=== PATIENT | male | born 1960 | race Caucasian/White ===

== ENCOUNTER → 2018-08-25 | Outpatient (CLI) | payer OTHER ==
[~2018-08-25] MED LIST: ADVIL100 M2 PO; DEPO-TESTO100 MG/1 M IM; ENOXAPARIN40 MG/0.1 SUBQ; MENEST PO; NORCO 5-325 TA1 EACH PO; PERCOCET 5-3251 EACH PO; PROMETRIUM100 MG PO; PROSTATE HEALT1 EACH PO; STRESS FORMULA PO; VITAMIN B-12100 MC1 PO; VITAMIN D35000 UNI1 PO
== END ==
LOC: RAD 16:50
DX: T17.900A Unspecified foreign body in respiratory tract, part unspecified causing asphyxiation, initial encounter (principal); X58.XXXA Exposure to other specified factors, initial encounter; Y93.89 Activity, other specified; Y92.89 Other specified places as the place of occurrence of the external cause; Y99.8 Other external cause status

== ENCOUNTER → 2018-09-04 | Outpatient (CLI) | payer OTHER | LOC: CAT 12:25 | DX: K57.30 Diverticulosis of large intestine without perforation or abscess without bleeding (principal); K59.00 Constipation, unspecified ==

== ENCOUNTER → 2018-09-13 | Outpatient (CLI) | payer OTHER ==
[~2018-09-13] VITALS: Ht 188 cm; Wt 113.4 kg
[~2018-09-13] MED LIST changes: +ALLOPURINOL 30300 M1 PO; +CRESTOR10 MG PO; +DHEA25 MG PO; +IBUPROFEN 400400 M2 PO; +LISINOPRIL10 MG PO
--- NOTE | ~2018-09-13 | P ---
[facility] [place] [address] PROCEDURE REPORT Name: KISHAN HERNANDEZ Room #: [id number] Admission: 09/13/18 Attend Phys: Omkar Peralta Discharge: Date of : 62 Report #: [id number] THIS REPORT FOR: //name// CC: Omkar Waterman MD DATE OF SERVICE: 09/13/2018 PROCEDURE PERFORMED: Colonoscopy. HISTORY OF PRESENT ILLNESS: The patient is a 58-year-old male who has a history of colon polyps 7 years ago, was undergoing a dental procedure in which a dental implant was accidentally swallowed. This was followed by several series of x-rays that showed the dental implant in the right lower quadrant. Eventually, he had a CT scan on 09/04/2018 also showing foreign body had passed through the small bowel into the colon. At that time, it was lying along the posterior colon wall in the right lower quadrant. He then had a large bowel movement recently and a followup x-ray was reportedly negative. He denies any symptoms at this time. No family history of colon cancer. DESCRIPTION OF PROCEDURE: The risks and benefits of the procedure were explained to the patient, those risks including but not limited to bleeding, perforation, the risk of sedation. He understood these risks and gave informed consent. Sedation was given using propofol per Anesthesia. Next, a digital rectal exam was initially performed, which was normal. Next, using a standard Olympus colonoscope, the scope was placed in the patient's anus and advanced under direct vision to the cecum. The overall prep was excellent. The cecum and ileocecal valve were normal in appearance. Ascending, transverse and descending colon were all normal. Multiple diverticula were noted in the sigmoid colon, no evidence of inflammation, otherwise normal. The rectal mucosa was normal. On retroflexion, small internal hemorrhoids were noted, otherwise anal canal was negative. There was no evidence of foreign object or dental implant on colonoscopy today. The scope was then withdrawn and the procedure terminated. The patient tolerated the procedure well. IMPRESSION: 1. Sigmoid diverticulosis. 2. Small internal hemorrhoids. 3. Otherwise, normal colonoscopy. RECOMMENDATIONS: 1. High-fiber diet. 2. Repeat colonoscopy in [address] [address] PROCEDURE REPORT Name: KAYLENILDAKISHAN SOLANO Room #: REG [facility] Cook#: [id number] Admission: 09/13/18 Attend Phys: Omkar Peralta Discharge: Date of : 62 Report #: [id number] Thank you for allowing me to participate in his care. <ELECTRONICALLY SIGNED> By: Omkar Santos MD 09/15/18 [id number] Omkar Santos MD /nt
== END | disposition home or self-care (01) ==
LOC: GI 08:05
DX: K57.30 Diverticulosis of large intestine without perforation or abscess without bleeding (principal); K64.8 Other hemorrhoids; Z86.010 Personal history of colon polyps; I10 Essential (primary) hypertension; E78.00 Pure hypercholesterolemia, unspecified; M10.9 Gout, unspecified; Z98.890 Other specified postprocedural states; Z85.810 Personal history of malignant neoplasm of tongue; Z79.899 Other long term (current) drug therapy; Z88.0 Allergy status to penicillin
CPT/HCPCS: 62110; 62900

== ENCOUNTER → 2020-03-27 | Outpatient (CLI) | payer OTHER | LOC: LAB 03-26 12:33 | PROVIDERS: ATTEND Family Medicine | DX: R05 Cough (principal); Z20.828 Contact with and (suspected) exposure to other viral communicable diseases ==